=== PATIENT | male | born 1960 | race Caucasian/White ===

== ENCOUNTER → 2018-11-03 | Outpatient (CLI) | payer OTHER ==
--- NOTE | 2018-11-03 17:14 | PCVCIMAG ---
APPROVED REPORT Study performed: 11/03/2018 16:02:29 Exam: Stress Echocardiogram Indication: tachycardia Patient Location: Echo lab Stress Nurse: Carissa Colvin RN Room #: 2 Status: routine Ht: 5 ft 7 in HR: 82 bpm BP: 132/70 mmHg Rhythm: NSR Medical History Medical History: Diabetes, Tobacco history (Former) Cardiac Risk Factors: Tobacco History (Former), DM Previous Cardiac Procedures: none Pretest Chest Pain Characteristics: No chest pain Exercise History: Physically active Procedure The patient underwent an Exercise Stress Test using the Sandy Protocol. Blood pressure, heart rate, and EKG were monitored. An Echocardiogram was performed by electrical assembly technician in four stages in quad fashion. At peak stress, four selected images were obtained and placed side by side with resting images for comparison. Stress Test Details Stress Test: Exercise stress testing was performed using a Sandy protocol. HR Resting HR: 82 bpmMax Heart Rate (APMHR): 164 bpm Max HR Achieved: 179 bpmTarget HR (85% APMHR): 139 bpm % of APMHR: 109 Recovery HR: 101 bpm HR response to stress: Normal HR response to stress BP Resting BP: 132/70 mmHg Max BP: 206/90 mmHg Recovery BP: 148/78 mmHg BP response to stress: Borderline hypertensive response to stress. ECG Resting ECG: Sinus Rhythm with early repolarization changes Stress ECG: Sinus Rhythm ST Change: Non-ischemic Maximum ST Deviation: 0 mm Arrhythmia: Rare PAC Recovery ECG: Sinus Rhythm Recovery ST Change: Non-ischemic Recovery ST Deviation: 0 mm Recovery Arrhythmia: Rare PAV,PVC Clinical Reason for Termination: Maximal effort Stress Symptoms: fatigue Exercise duration: 10 min 42 sec Highest Stage Achieved: Stage 4: 4.2 mph at 16% grade. Exercise capacity: 13.4 METs Overall Exercise Capacity for Age: Excellent Scale: Active Angina Score: None No complications. Stress ECG Conclusion The patient exercised according to the SANDY protocol for 10:42 mins; achieving a work level of 13.4 METS. The resting heart rate of 82 bpm june to a maximum heart rate of 179 bpm. This value represent 109% of the maximal, age-predicted heart rate. The resting blood pressure of 132/70 mmHg, june to a maximum blood pressure of 206/90 mmHg. The exercise test was stopped due to fatigue. Stroud Treadmill Score is 10.0 which is Low risk. Pre-Stress Echo The resting Echocardiogram showed normal left ventricular contractility with an estimated Ejection Fraction of about 55-60%. Post-Stress Echo The stress Echocardiogram showed normal left ventricular contractility with an estimated Ejection Fraction of about 65-70%. Normal augmentation of wall motion in all segments on post stress images. Clinical No clinical or ECG evidence for ischemia. Conclusion Clinical Response: Non-ischemic Exercise Capacity: Superior Stress ECG Response: Non-ischemic Stress Echo Images: Non-ischemic No clinical, EKG or echocardiographic evidence for ischemia. No echocardiographic evidence for exercise induced ischemia. Normal stress echocardiogram with maximal exercise stress. <Conclusion> No clinical, EKG or echocardiographic evidence for ischemia. No echocardiographic evidence for exercise induced ischemia. Normal stress echocardiogram with maximal exercise stress.
== END | disposition home or self-care (01) ==
LOC: PCVCIMAG 15:03
PROVIDERS: ATTEND Family Medicine
DX: E11.9 Type 2 diabetes mellitus without complications (principal); Z68.33 Body mass index [BMI] 33.0-33.9, adult; Z88.0 Allergy status to penicillin
CPT/HCPCS: 93325; 93351